=== PATIENT | male | born 1990 | race Caucasian/White ===

== ENCOUNTER 2021-01-13 15:01 | Emergency (ER) | payer SELFPAY ==
[~2021-01-13] VITALS: Ht 182.9 cm; Wt 99.5 kg
--- NOTE | 2021-01-13 17:12 | PHYS DOC ---
Past History Past Medical History: No Pertinent History (ELZA HERBERT APRN) Past Surgical History: No Surgical History (ELZA HERBERT APRN) Alcohol Use: None (ELZA HERBERT APRN) General Adult EDM: Chief Complaint: ABDOMINAL PAIN HPI: HPI: Patient is a 30-year-old male presents with right upper quadrant and left upper quadrant pain for the last 2 days. Patient reports nausea and vomiting. Patient denies diarrhea. Denies fevers. Patient denies radiation of pain. Patient states "I have not been able to eat or drink anything because I was been sick to my stomach". Patient denies health history. (ELZA HERBERT APRN) Review of Systems: Review of Systems: Constitutional: Denies fever or chills Eyes: Denies change in visual acuity HENT: Denies nasal congestion or sore throat Respiratory: Denies cough or shortness of breath Cardiovascular: Denies chest pain or edema GI: Reports right upper quadrant and left upper quadrant abdominal pain, nausea, vomiting. Denies diarrhea. : Denies dysuria Musculoskeletal: Denies back pain or joint pain Integument: Denies rash Neurologic: Denies headache, focal weakness or sensory changes Endocrine: Denies polyuria or polydipsia Lymphatic: Denies swollen glands Psychiatric: Denies depression or anxiety (ELZA HERBERT APRN) Allergies: Allergies: Allergies Coded Allergies Type Severity Reaction Last Updated Verified Penicillins Allergy Unknown 01/13/21 Yes (ELZA HERBERT APRN) Physical Exam: PE: Constitutional: Well developed, well nourished, no acute distress, non-toxic appearance. [] HENT: Normocephalic, atraumatic, bilateral external ears normal, oropharynx moist, no oral exudates, nose normal. [] Eyes: PERRLA, EOMI, conjunctiva normal, no discharge. [] Neck: Normal range of motion, no tenderness, supple, no stridor. [] Cardiovascular:Heart rate regular rhythm, no murmur [] Lungs & Thorax: Bilateral breath sounds clear to auscultation [] Abdomen: Bowel sounds normal, soft, right upper quadrant tenderness Skin: Warm, dry, no erythema, no rash. [] Back: No tenderness, no CVA tenderness. [] Extremities: No tenderness, no cyanosis, no clubbing, ROM intact, no edema. [] Neurologic: Alert and oriented X 3, normal motor function, normal sensory function, no focal deficits noted. [] Psychologic: Affect normal, judgement normal, mood normal. [] (ELZA HERBERT APRN) Current Patient Data: Vital Signs: Vital Signs Date Time Temp Pulse Resp B/P (MAP) Pulse Ox O2 Delivery O2 Flow Rate FiO2 01/13/21 15:12 97.5 92 16 180/124 (142) 98 Room Air (ELZA HERBERT APRN) EKG: EKG: [] (ELZA HERBERT APRN) Radiology/Procedures: Radiology/Procedures: []EXAM: ULTRASOUND ABDOMEN COMPLETE CLINICAL HISTORY: Reason: RUQ AND LUQ PAIN / Spl. Instructions: / History: COMPARISON: None available. TECHNIQUE: Ultrasound of the upper abdomen was performed. FINDINGS: Liver contour is normal. Hepatopedal flow noted in the portal vein. Increased echogenicity liver. Gallbladder is partially distended and appears thin-walled. No pericholecystic fluid or wall thickening. No gallstones. Common bile duct measures 3 mm in diameter. Right kidney measures 13 cm in length. No hydronephrosis. Left kidney measures 11.0 cm in length. No hydronephrosis. Spleen measures 13.0 cm in long axis. Visualized portions of aorta and IVC are unremarkable. IMPRESSION: 1. Splenomegaly. 2. Diffuse hepatic steatosis. 3. No sonographic evidence for acute cholecystitis. 4. No hydronephrosis. Electronically signed by: Sri Porras MD (01/13/2021 6:02 PM) [facility] (ELZA HERBERT APRN) Heart Score: C/O Chest Pain: No Risk Factors: Risk Factors: DM, Current or recent (<one month) smoker, HTN, HLP, family history of CAD, obesity. Risk Scores: Score 0 - 3: 2.5% MACE over next 6 weeks - Discharge Home Score 4 - 6: 20.3% MACE over next 6 weeks - Admit for Clinical Observation Score 7 - 10: 72.7% MACE over next 6 weeks - Early Invasive Strategies (ELZA HERBERT APRN) Course & Med Decision Making: Course & Med Decision Making Pertinent Labs and Imaging studies reviewed. (See chart for details) [] 30-year-old male presents with right upper quadrant and left upper quadrant pain for the last 2 days. Patient states that he has also been nauseated and vomited one time today. Patient given 4 mg of Zofran for nausea and 15 mg IV of Toradol for pain. Patient states that he has not been able to eat or drink due to nausea. 0.9 NS bolus given. Patient's blood pressure was elevated 180s over 120s. Patient given clonidine 0.2 mg. Patient's blood pressure was still elevated on reassessment. Patient given 20 of labetalol. Ultrasound of abdomen shows splenomegaly and diffuse hepatic steatosis. AST, ALT, alkaline phosphate slightly elevated. Discussed CT results with patient. Instructed patient to call his PCP tomorrow and make a follow-up appointment for further evaluation and possible GI consultation. Patient given community resources and [facility] contact information. Discussed blood pressure with patient and that he needed to get back on blood pressure medicine. Patient states that he understands, and is willing to follow-up with [facility]. (ELZA HERBERT APRN) Course & Med Decision Making Did not see or evaluate patient. Agree with BOW MAKER's work-up and disposition per note. (TEOFILO MILES MD) Dragon Disclaimer: Dragon Disclaimer: This electronic medical record was generated, in whole or in part, using a voice recognition dictation system. (ELZA HERBERT APRN) Departure Departure: Impression: Primary Impression: Right upper quadrant abdominal pain Additional Impression: Splenomegaly Disposition: HOME / SELF CARE / HOMELESS Condition: STABLE Referrals: PCP,NO (PCP) Patient Instructions: Abdominal Pain Additional Instructions: For right upper quadrant pain that also radiated to the left upper quadrant. CT results showed enlarged spleen. I have given you a copy of your CT results and also a prescription for blood pressure medicine. Your blood pressure was elevated evaluating the emergency room and you need to get back on blood pressure medicine. I have also attached the number to [facility] so that you can follow-up and see a physician that can manage your blood pressure and possibly give you a referral for GI. Please return to emergency room with worsening symptoms or concerns. EMERGENCY DEPARTMENT GENERAL DISCHARGE INSTRUCTIONS Thank you for coming to [facility] (ED) today and trusting us with you care. We trust that you had a positivie experience in our Emergency Department. If you wish to speak to the department management, you may call the director at . YOUR FOLLOW UP INSTRUCTIONS ARE FOLLOWS: 1. Do you have a private Doctor? If you do not have a private doctor, please ask for a resource list of physicians or clinics that may be able to assist you with follow up care. 2. The Emergency Physician has interpreted your x-rays. The X-Ray specialist will also review them. If there is a change in the findings, you will be notified in 48 hours when at all possible. 3. A lab test or culture has been done, your results will be reviewed and you will be notified if you need a change in treatment. ADDITIONAL INSTRUCTIONS AND INFORMATION: 1. Your care today has been supervised by a physician who is specially trained in emergency care. Many problems require more than one evaluation for a complete diagnosis and treatment. We recommend that you schedule your follow up appointment as recommended to ensure complete treatment of you illness or injury. If you are unable to obtain follow up care and continue to have a problem, or if your condition worsens, we recommend that you return to the ED. 2. We are not able to safely determine your condition over the phone nor are we able to give sound medical advice over the phone. For these safety reasons, if you call for medical advice we will ask you to come to the ED for further evaluation. 3. If you have any questions regarding these discharge instructions please call the ED at [phone]. SAFETY INFORMATION: In the interest of safety, wellness, and injury prevention; we encourage you to wear your sealbelt, if you smoke; quite smoking, and we encourage family to use a protective helmet for bicycling and other sporting events that present an increased risk for head injury. IF YOUR SYMPTOMS WORSEN OR NEW SYMPTOMS DEVELOP, OR YOU HAVE CONCERNS ABOUT YOUR CONDITION; OR IF YOUR CONDITION WORSENS WHILE YOU ARE WAITING FOR YOUR FOLLOW UP APPOINTMENT; EITHER CONTACT YOUR PRIMARY CARE DOCTOR, THE PHYSICIAN WHOSE NAME AND NUMBER YOU WERE GIVEN, OR RETURN TO THE ED IMMEDIATELY. Scripts Hydrochlorothiazide (HYDROCHLOROTHIAZIDE CAPSULE ) 12.5 Mg Capsule 12.5 MG PO DAILY for DIURETIC for 30 Days, #30 CAP 0 Refills Prov: ELZA HERBERT APRN 01/13/21 ELZA HERBERT APRN Jan 13, 2021 17:12 TEOFILO MILES MD Jan 14, 2021 01:02
[2021-01-13] MEDS ORDERED: IV NORMAL SALINE 1,000ML 1,000 ML IV ONE (17:15)
[2021-01-13] MEDS ORDERED: KETOROLAC 15 MG/ML VIAL. IVP ONE (17:15)
[2021-01-13] MEDS ORDERED: ONDANSETRON PF 4 MG/2 ML VIAL. IVP ONE (17:15)
--- NOTE | 2021-01-13 18:04 | RAD ---
EXAM: ULTRASOUND ABDOMEN COMPLETE CLINICAL HISTORY: Reason: RUQ AND LUQ PAIN / Spl. Instructions: / History: COMPARISON: None available. TECHNIQUE: Ultrasound of the upper abdomen was performed. FINDINGS: Liver contour is normal. Hepatopedal flow noted in the portal vein. Increased echogenicity liver. Gallbladder is partially distended and appears thin-walled. No pericholecystic fluid or wall thickeni ng. No gallstones. Common bile duct measures 3 mm in diameter. Right kidney measures 13 cm in length. No hydronephrosis. Left kidney measures 11.0 cm in length. No hydronephrosis. Spleen measures 13.0 cm in long axis. Visualized portions of aorta and IVC are unremarkable. IMPRESSION: 1. Splenomegaly. 2. Diffuse hepatic steatosis. 3. No sonographic evidence for acute cholecystitis. 4. No hydronephrosis. Electronically signed by: Sri Porras MD (01/13/2021 6:02 PM) JUDI
[2021-01-13 18:48] LABS: BASO # 0.1 x10^3/uL (0.0-0.2); BASO % 1 % (0-3); EOS # 0.2 x10^3/uL (0.0-0.7); EOS % 1 % (0-3); HEMATOCRIT 50.4 % (39.0-53.0); HEMOGLOBIN 17.3 g/dL (13.0-17.5); LYMPH # 2.1 x10^3/uL (1.0-4.8); LYMPH % 16 % (24-48); MEAN CORPUSCULAR HEMOGLOBIN 31 pg (25-35); MEAN CORPUSCULAR HGB CONC 34 g/dL (31-37); MEAN CORPUSCULAR VOLUME 90 fL (79-100); MONO % 8 % (0-9); NEUT % 75 % (31-73); PLATELET COUNT 249 x10^3/uL (140-400); RED BLOOD COUNT 5.59 x10^6/uL (4.30-5.70); RED CELL DISTRIBUTION WIDTH 12.8 % (11.5-14.5); WHITE BLOOD COUNT 13.4 x10^3/uL (4.0-11.0)
[2021-01-13 18:59] LABS: CALCIUM 9.6 mg/dL (8.5-10.1); GFR 86.6
[2021-01-13 19:05] LABS: ALBUMIN 4.2 g/dL (3.4-5.0); ALBUMIN/GLOBULIN RATIO 1.1 (1.0-1.7); TOTAL BILIRUBIN 0.9 mg/dL (0.2-1.0); TOTAL PROTEIN 7.9 g/dL (6.4-8.2)
[2021-01-13] MEDS ORDERED: cloNIDine HCL 0.1 MG TABLET PO ONE (19:15)
[2021-01-13] MEDS ORDERED: LABETALOL 20 MG/4 ML DISP.SYRIN. IVP ONE (20:30)
[2021-01-13] MEDS ORDERED: HYDR12.572 PO (20:54)
[2021-01-13 20:55] VITALS: BP 158/110
== END 2021-01-13 21:19 | disposition home or self-care (01) ==
LOC: ER 15:01
DX: R16.1 Splenomegaly, not elsewhere classified (principal); R10.12 Left upper quadrant pain; Z88.0 Allergy status to penicillin
CPT/HCPCS: 36415; 76700; 80053; 83690; 85025; 93005; 96361; 96374; 96375; 99285; J1885; J2405; J3490; J7030

== ENCOUNTER 2021-09-12 16:14 | Emergency (ER) | payer SELFPAY ==
[~2021-09-12] VITALS: Ht 182.9 cm; Wt 99.5 kg
[~2021-09-12 16:14] MED LIST: HYDR12.572 PO
[2021-09-12 16:20] VITALS: BP 158/110
[2021-09-12] MEDS ORDERED: KETOROLAC 30 MG/ML VIAL. IVP ONE (16:45)
[2021-09-12] MEDS ORDERED: IV NORMAL SALINE 1,000ML 1,000 ML IV ONE (16:45)
[2021-09-12] MEDS ORDERED: diphenhydrAMINE 50 MG/ML VIAL IVP ONE (16:45)
[2021-09-12] MEDS ORDERED: PROCHLORPERAZINE 10 MG/2 ML VIAL. IV ONE (16:45)
--- NOTE | 2021-09-12 16:45 | PHYS DOC ---
Past History Past Medical History: No Pertinent History (KVNG ESQUEDA APRN) Past Surgical History: No Surgical History (KVNG ESQUEDA APRN) Alcohol Use: None (KVNG ESQUEDA APRN) General Adult EDM: Chief Complaint: Neck Pain HPI: HPI: Patient patient is a 41-year-old male who presents to the emergency department for left occipital headache that radiates to his forehead it has been intermittent for 2 years. Patient reports that occasionally his headache is associated with syncope. Patient denies a syncopal episode today. He denies alcohol, drug use, nausea, vomiting, vision changes, photophobia, phonophobia, head injury, seizure-like activity, fevers, neck stiffness, thunderclap he adache, worst headache of his life. (KVNG ESQUEDA APRN) Review of Systems: Review of Systems: Constitutional: See HPI Eyes: See HPI HENT: See HPI GI: See HPI Musculoskeletal: See HPI Neurologic: See HPI (KVNG ESQUEDA APRN) Current Medications: Current Meds: Current Medications Medications (Trade) Dose Ordered Sig/Garcia Start Time Stop Time Status Last Admin Dose Admin Diphenhydramine HCl (Benadryl) 25 mg 1X ONCE 09/12/21 16:45 09/12/21 16:46 UNV Ketorolac Tromethamine (Toradol 30mg Vial) 30 mg 1X ONCE 09/12/21 16:45 09/12/21 16:46 UNV Prochlorperazine Edisylate (Compazine) 10 mg 1X ONCE 09/12/21 16:45 09/12/21 16:46 UNV Sodium Chloride 1,000 ml @ 1,000 mls/hr 1X ONCE 09/12/21 16:45 09/12/21 17:44 UNV (KVNG ESQUEDA APRN) Allergies: Allergies: Allergies Coded Allergies Type Severity Reaction Last Updated Verified Penicillins Allergy Unknown 01/13/21 Yes (KVNG ESQUEDA APRN) Physical Exam: PE: Constitutional: Well developed, well nourished, no acute distress, non-toxic appearance. [] HENT: Normocephalic, atraumatic, bilateral external ears normal, oropharynx moist, no oral exudates, nose normal. [] Eyes: PERRL,5mm bilaterally, EOMI, conjunctiva normal, no discharge. [] Neck: Normal range of motion, no tenderness, supple, no nuchal rigidity, no stridor. [] Cardiovascular:Heart rate regular rhythm, no murmur [] Lungs & Thorax: Bilateral breath sounds clear to auscultation [] Abdomen: Bowel sounds normal, soft, no tenderness, no masses, no pulsatile masses. [] Skin: Warm, dry, no erythema, no rash. [] Back: No tenderness, normal ROM Extremities: No tenderness, no cyanosis, no clubbing, ROM intact, no edema. [] Neurologic: Alert and oriented X 3, normal motor function, normal sensory function, no focal deficits noted, no pronator drift, patient ambulatory, equal strengths upper and lower extremities, no aphasia or slurred speech [] Psychologic: Affect normal, judgement normal, mood normal. [] (KVNG ESQUEDA APRN) Current Patient Data: Vital Signs: Vital Signs Date Time Temp Pulse Resp B/P (MAP) Pulse Ox O2 Delivery O2 Flow Rate FiO2 09/12/21 16:20 98.0 71 16 158/110 (126) 98 Room Air (KVNG ESQUEDA APRN) EKG: EKG: [] (KVNG ESQUEDA APRN) Radiology/Procedures: Radiology/Procedures: []PROCEDURE: CT HEAD WO CONTRAST INDICATION: Reason: headache with syncope / Spl. Instructions: / History: COMPARISON: None. TECHNIQUE: Axial CT images obtained through the head without intravenous contrast. One or more of the following individualized dose reduction techniques were utilized for this examination: 1. Automated exposure control; 2. Adjustment of the mA and/or kV according to patient size; 3. Use of iterative reconstruction technique. FINDINGS: No intracranial hemorrhage. No significant midline shift. Ventricles and sulci are unremarkable. No acute osseous abnormality. IMPRESSION: * No acute intracranial hemorrhage. Electronically signed by: Howie Godfrey MD (09/12/2021 5:18 PM) [id number] DICTATED AND SIGNED BY: HOWIE GODFREY MD DATE: 09/12/211716 CC: KVNG ESQUEDA APRN; PCP,NO ~MTH0 0 (KVNG ESQUEDA APRN) Heart Score: C/O Chest Pain: N/A Risk Factors: Risk Factors: DM, Current or recent (<one month) smoker, HTN, HLP, family history of CAD, obesity. Risk Scores: Score 0 - 3: 2.5% MACE over next 6 weeks - Discharge Home Score 4 - 6: 20.3% MACE over next 6 weeks - Admit for Clinical Observation Score 7 - 10: 72.7% MACE over next 6 weeks - Early Invasive Strategies (KVNG ESQUEDA APRN) Course & Med Decision Making: Course & Med Decision Making Pertinent Labs and Imaging studies reviewed. (See chart for details) Patient presents to the emergency department for left occipital headache that radiates to the front of his head that has been intermittent for 2 years. Patient states that sometimes the pain is so severe that he will have a syncopal episode. Patient denies any syncope today. He denies thunderclap headache, no meningeal signs, he denies that this is the worst headache of his life. CT scan of his head was performed due to the headache and syncope which showed no acute findings. Patient treated with migraine cocktail. Patient reports improvement in his headache following treatment in the emergency department. Patient advised to take anti-inflammatory medications for his headache at home, increase his fluids and rest in a dark quiet area. Patient was given referral information for neurology as he may need to see a neurologist if his headache continues. I discussed with patient all findings and diagnostic testing as well as the need to follow-up with PCP for further evaluation and treatment or return to the ER if any new or worsening symptoms. Strict return precautions were also discussed at length. Patient voiced understanding and agreement with the plan. Patient is hemodynamically stable at the time of disposition. (KVNG ESQUEDA APRN) Dragon Disclaimer: Dragon Disclaimer: This electronic medical record was generated, in whole or in part, using a voice recognition dictation system. (KVNG ESQUEDA APRN) Attending Co-Sign The patient was seen and interviewed as well as examined at the bedside. The chart was reviewed. The case was discussed. Agree with the plan of care. (JENNIFER GARCIA DO) Departure Departure: Impression: Primary Impression: Headache Qualified Codes: R51.9 - Headache, unspecified; G89.29 - Other chronic pain Disposition: HOME / SELF CARE / HOMELESS Condition: GOOD Referrals: PCP,NO (PCP) HANS AKBAR MD Patient Instructions: General Headache Without Cause Additional Instructions: You were seen in the emergency department today for headache. You had imaging performed of your head which showed no acute findings. You are treated with a migraine cocktail. When you go home you can take anti-inflammatory medications like Tylenol and ibuprofen for your headache at home. Increase your fluids as dehydration is a common cause of headaches. You can also rest in a dark quiet area when the headache starts. Please follow-up with your primary care provider tomorrow regarding your ER visit. If you continue to have headaches you may need to see a neurologist. And need for a neurologist was attached to your discharge papers. Return to the emergency department if you develop worsening of your headache and the worst headache of your life, intractable nausea or vomiting, confusion, vision changes, seizure-like activity, high fevers refractory to treatment, difficulty walking or any new or worsening concerns. KVNG ESQUEDA APRN Sep 12, 2021 16:45 JENNIFER GARCIA DO Sep 13, 2021 06:15
--- NOTE | 2021-09-12 17:20 | RAD ---
INDICATION: Reason: headache with syncope / Spl. Instructions: / History: COMPARISON: None. TECHNIQUE: Axial CT images obtained through the head without intravenous contrast. One or more of the following individualized dose reduction techniques were utilized for this examinat ion: 1. Automated exposure control; 2. Adjustment of the mA and/or kV according to patient size; 3 . Use of iterative reconstruction technique. FINDINGS: No intracranial hemorrhage. No significant midline shift. Ventricles and sulci are unremarkable. No acute osseous abnormality. IMPRESSION: * No acute intracranial hemorrhage. Electronically signed by: Jerry Coles MD (09/12/2021 5:18 PM) [id number]
== END 2021-09-12 17:55 | disposition home or self-care (01) ==
LOC: ER 16:18
DX: R51.9 Headache, unspecified (principal); R55 Syncope and collapse; R42 Dizziness and giddiness; Z88.0 Allergy status to penicillin
CPT/HCPCS: 70450; 96361; 96374; 96375; 99284; J0780; J1200; J1885; J7030